=== PATIENT | female | born 1960 | race Caucasian/White ===

== ENCOUNTER 2020-09-16 16:09 | Emergency (ER) | payer MEDICAID ==
[~2020-09-16] VITALS: Ht 162.6 cm; Wt 81.8 kg
[2020-09-16 16:13] VITALS: BP_DIAS 100
[2020-09-16] MEDS ORDERED: lisinopril 5mg tablet PO ONE (16:45)
[2020-09-16] MEDS ORDERED: lisinopril 10 MG tablet PO ONE (16:45)
[2020-09-16] MEDS ORDERED: METF500T PO (16:53)
[2020-09-16] MEDS ORDERED: LISI-604 PO (16:53)
[2020-09-16] MEDS ORDERED: metFORMIN 500mg tablet PO ONE (16:55)
[2020-09-16] MEDS ORDERED: insulin regular, human 10 units/0.1 ml syringe SQ ONE (16:55)
[2020-09-16 17:03] VITALS: BP_SYST 120
== END 2020-09-16 18:09 ==
LOC: ER 16:09
DX: I10 Essential (primary) hypertension (principal); E11.65 Type 2 diabetes mellitus with hyperglycemia; Z79.899 Other long term (current) drug therapy
CPT/HCPCS: 82948; 96372; 99283; J1815

== ENCOUNTER 2022-11-24 03:21 | Emergency (ER) | payer MEDICAID ==
[~2022-11-24] VITALS: Ht 162.6 cm; Wt 92.7 kg
[~2022-11-24 03:21] MED LIST: LISI5TAB22 PO
[2022-11-24] MEDS ORDERED: morphine 4 MG/ML inj SYRINge IV ONE (03:50)
[2022-11-24] MEDS ORDERED: ondansetron/PF 4mg/2ml inj IV ONE (03:50)
[2022-11-24 05:06] LABS: BASOPHILS % (AUTO) 0.5 % (0-1); EOSINOPHILS % (AUTO) 0.6 % (0-6); HEMOGLOBIN 14.4 g/dl (12.0-16.0); LYMPHOCYTES # (AUTO) 2.2 X10'3 (1.1-4.8); LYMPHOCYTES % (AUTO) 26.9 % (21-51); MEAN CORPUSCULAR HEMOGLOBIN 30.7 PG (27.0-31.0); MEAN CORPUSCULAR HGB CONC 34.2 g/dL (33.0-36.5); MEAN CORPUSCULAR VOLUME 89.7 FL (78-98); MEAN PLATELET VOLUME 6.9 FL (7.4-10.4); MONOCYTES # (AUTO) 0.6 X10'3 (0-0.9); MONOCYTES % (AUTO) 6.7 % (2-12); NEUTROPHILS # (AUTO) 5.4 X10'3 (1.8-7.7); NEUTROPHILS % (AUTO) 65.3 % (42-75); PLATELET COUNT 278 X10'3 (140-440); RED BLOOD COUNT 4.68 X10'6 (4.20-5.60); RED CELL DISTRIBUTION WIDTH 13.1 % (11.5-14.5); WHITE BLOOD COUNT 8.2 X10'3 (4.5-11.0)
[2022-11-24 05:10] LABS: APTT 28 SECONDS (22-32)
[2022-11-24 05:15] LABS: ALANINE AMINOTRANSFERASE 31 U/L (12-78); ALBUMIN 3.6 G/DL (3.4-5.0); ALBUMIN/GLOBULIN RATIO 0.9 (1.1-1.5); ALKALINE PHOSPHATASE 91 IU/L (46-116); ANION GAP 5 (8-16); ASPARTATE AMINO TRANSFERASE 25 U/L (10-37); BILIRUBIN,TOTAL 0.6 MG/DL (0.1-1.0); BLOOD UREA NITROGEN 13 MG/DL (7-18); BUN/CREATININE RATIO 15.1 (10.0-20.0); CALCIUM 9.2 MG/DL (8.5-10.1); CHLORIDE 101 MMOL/L (99-107); CREATININE 0.86 MG/DL (0.40-0.90); GLUCOSE 168 MG/DL (70-104); SODIUM 138 MMOL/L (135-145); TOTAL CARBON DIOXIDE 32.5 MMOL/L (24-32); TOTAL PROTEIN 7.5 G/DL (6.4-8.2); eGFR 67 ML/MIN
[2022-11-24] MEDS ORDERED: ketorolac trometh inj. 60 MG/2 ML VIAL IM ONE (05:25)
[2022-11-24] MEDS ORDERED: IBUP-1985 PO (05:41)
[2022-11-24] MEDS ORDERED: HYDROcodone/acetaminophen 10/325mg tab PO ONE (06:15)
--- NOTE | 2022-11-24 09:23 | NUR ---
Called MRI to see if we can do the MRI lumbar spine prior to discharge. I was told that they hae other patients they need to do and wont be until around noon
--- NOTE | 2022-11-24 09:31 | NUR ---
Dr. Hodge notified about the delay in MRI. Patient was notified about the MRI to be done around 12 noon. Patient stated she needed to come to the [facility] clinic for her appointment at [address] Hodge was aware about this. Patient was advised to stay for the MRI. Patient was undecided at this time of what she needed to do. She was attempting to call her boyfriend without success.
--- NOTE | 2022-11-24 10:12 | NUR ---
Patient decided to go AMA despite of repeated advice to stay. Patient stated she will follow up with her provider and get the MRI done outpatient. Patient calling her bf sera for a ride. Dr. Hodge notified about this. Charge nurse Sheila gardiner
--- NOTE | 2022-11-24 10:24 | NUR ---
Dr. Narvaez aware of the patient's decision to go AMA and that the paper was signed by the patient. Dr. Narvaez wanted us to try to get up patient to do the gait test. ABA alexandre and myself tried to get her up sitting on the edge of the bed but patient did not tolerated, she was in a lot of pain. Dr. narvaez notified that patient could not tolerate the gait test. Dr. Narvaez said she will call the [facility] [place].
[2022-11-24] MEDS ORDERED: methadone 10mg tablet PO ONE (10:35)
--- NOTE | 2022-11-24 10:53 | NUR ---
Patient was notified that Dr. narvaez ordered Methadone. Patient decided she will stay, requested to cancel the AMA. She wanted the MRI done while she is here
[2022-11-24 11:35] VITALS: BP 125/79
--- NOTE | 2022-11-24 14:55 | NUR ---
Per Dr. Haywood, patient can be discharge now. Patient said she is okay with being on wheelchair and wait to the lobby to make a phone call for her ride as she could not call her boyfriend sera from her cellphone. I already told the registration that patient will be waiting in the lobby on a wheelchair to make a phone call and wait for her ride.
== END 2022-11-24 15:13 | disposition home or self-care (01) ==
LOC: ER 03:21
DX: M79.605 Pain in left leg (principal); M51.26 Other intervertebral disc displacement, lumbar region; I10 Essential (primary) hypertension; E11.9 Type 2 diabetes mellitus without complications; F41.9 Anxiety disorder, unspecified; F15.90 Other stimulant use, unspecified, uncomplicated; F11.90 Opioid use, unspecified, uncomplicated; Z79.899 Other long term (current) drug therapy
CPT/HCPCS: 36415; 72131; 72148; 80053; 85025; 85610; 85730; 93005; 93926; 96372; 96374; 96375; 99285; J1885; J2270; J2405; A4615

== ENCOUNTER → 2024-01-29 | Outpatient (CLI) | payer MEDICAID ==
[~2024-01-29] MED LIST changes: +IBUP-1985 PO
== END | disposition home or self-care (01) ==
LOC: RAD 16:41
PROVIDERS: ATTEND Physician Assistant
DX: I49.8 Other specified cardiac arrhythmias (principal); F11.20 Opioid dependence, uncomplicated
CPT/HCPCS: 93005

== ENCOUNTER → 2024-02-10 | Outpatient (CLI) | payer MEDICAID | END | disposition home or self-care (01) | LOC: RAD 13:13 | PROVIDERS: ATTEND Family Medicine | DX: M25.512 Pain in left shoulder (principal) | CPT/HCPCS: 73030 ==

== ENCOUNTER 2024-05-24 14:50 | Emergency (ER) | payer MEDICAID ==
[~2024-05-24] VITALS: Ht 162.6 cm; Wt 83.0 kg
[2024-05-24] MEDS ORDERED: CYCL-394 PO (16:59)
[2024-05-24] MEDS: ketorolac trometh 15mg/ml vial 15 MG/ML ML IM ONE (17:08)
[2024-05-24] MEDS: HYDROcodone/acetaminophen 10/325mg tab PO ONE (17:09)
[2024-05-24 17:22] VITALS: BP 154/95; PULSE 74; RESP 14; TEMP 98.5; O2SAT 99
== END 2024-05-24 17:15 | disposition home or self-care (01) ==
LOC: ER 14:50
DX: S93.509A Unspecified sprain of unspecified toe(s), initial encounter (principal); S39.012A Strain of muscle, fascia and tendon of lower back, initial encounter; I10 Essential (primary) hypertension; E11.9 Type 2 diabetes mellitus without complications; G89.29 Other chronic pain; F41.9 Anxiety disorder, unspecified; F15.90 Other stimulant use, unspecified, uncomplicated; Z79.899 Other long term (current) drug therapy; Z79.1 Long term (current) use of non-steroidal anti-inflammatories (NSAID); W19.XXXA Unspecified fall, initial encounter; Y93.89 Activity, other specified; Y92.89 Other specified places as the place of occurrence of the external cause; Y99.8 Other external cause status
CPT/HCPCS: 96372; 99284; J1885

== ENCOUNTER 2024-06-03 14:10 | Emergency (ER) | payer MEDICAID ==
[~2024-06-03] VITALS: Ht 157.5 cm; Wt 81.8 kg
[~2024-06-03 14:10] MED LIST changes: +CYCL-394 PO
[2024-06-03] MEDS: ketorolac trometh 30MG/ML vial 30 MG/ML VIAL IM ONE (16:10)
[2024-06-03 16:17] VITALS: BP 122/64; PULSE 80; RESP 16; TEMP 98.6; O2SAT 99
== END 2024-06-03 16:19 | disposition home or self-care (01) ==
LOC: ER 14:10
DX: S93.691A Other sprain of right foot, initial encounter (principal); I10 Essential (primary) hypertension; E11.9 Type 2 diabetes mellitus without complications; F41.9 Anxiety disorder, unspecified; G89.29 Other chronic pain; M54.9 Dorsalgia, unspecified; F15.90 Other stimulant use, unspecified, uncomplicated; F11.90 Opioid use, unspecified, uncomplicated; Z79.899 Other long term (current) drug therapy; Z79.1 Long term (current) use of non-steroidal anti-inflammatories (NSAID); Z98.890 Other specified postprocedural states; X58.XXXA Exposure to other specified factors, initial encounter; Y93.89 Activity, other specified; Y92.89 Other specified places as the place of occurrence of the external cause; Y99.8 Other external cause status
CPT/HCPCS: 96372; 99283; J1885